=== PATIENT | male | born 1995 | race Caucasian/White ===

== ENCOUNTER 2018-07-12 20:54 | Emergency (ER) | payer SELFPAY ==
[2018-07-12 22:30] LABS: Absolute Lymphocytes (CBC) 2.9 K/uL (0.7-4.9); Absolute Monocytes 0.7 K/uL (0.1-1.3); Basophils % 0.5 % (0-1.3); Hematocrit 45.4 % (39.6-49.0); Lymphocytes % 32.8 % (15.3-44.8); MCH 30.9 pg (27.0-35.0); MCV 89.5 fL (80-100); MPV 8.8 fL (7.6-11.3); Monocytes % 7.8 % (3.3-12.3); RBC Red Blood Cell Count 5.07 M/uL (4.33-5.43)
[2018-07-12 22:45] LABS: Albumin 4.3 g/dL (3.4-5.0); Bilirubin Direct 0.2 mg/dL (0-0.2); Bilirubin Total 0.9 mg/dL (0.2-1.0); Potassium 4.5 mmol/L (3.5-5.1); Protein, Total 8.4 g/dL (6.4-8.2)
--- NOTE | 2018-07-12 23:52 | ER ---
Nurse's Notes [facility] Name: Dionte Carpenter Age: 23 yrs Sex: Male : 1995 Arrival Date: 07/12/2018 Time: 20:59 Bed 25 Private MD: Diagnosis: Vomiting;Diarrhea, unspecified Presentation: 07/12 21:10 Presenting complaint: Patient states: He has been having abdominal pain "that is aj1 everywhere and moves around like a constant stomach ache" vomiting, and diarrhea since Tuesday. Reports that he has also been having lower back pain. Denies fever. Denies urinary symptoms. Transition of care: patient was not received from another setting of care. Onset of symptoms was July 2018. Risk Assessment: Do you want to hurt yourself or someone else? Patient reports no desire to harm self or others. Initial Sepsis Screen: Does the patient meet any 2 criteria? No. Patient's initial sepsis screen is negative. Does the patient have a suspected source of infection? Yes: Acute abdominal pain. Care prior to arrival: None. 21:10 Method Of Arrival: Ambulatory aj 21:10 Acuity: IRINA 3 aj1 Triage Assessment: 21:32 General: Appears in no apparent distress. comfortable, Behavior is calm, cooperative, aj1 appropriate for age. Pain: Complains of pain in abdomen Pain currently is 5 out of 10 on a pain scale. Neuro: Level of Consciousness is awake, alert, obeys commands. Cardiovascular: Patient's skin is warm and dry. Respiratory: Airway is patent Respiratory effort is even, unlabored, Respiratory pattern is regular, symmetrical. Musculoskeletal: Range of motion: intact in all extremities. Historical: - Allergies: 21:32 SHELLFISH; aj1 - Home Meds: 21:32 None [Active]; aj1 - PMHx: 21:32 None; aj1 - PSHx: 21:32 None; aj1 - Immunization history:: Flu vaccine is not up to date. - Social history:: Smoking status: Patient uses tobacco products, denies chronic smoking, but will smoke occasionally. - Ebola Screening: : Patient denies travel to an Ebola-affected area in the 21 days before illness onset. Screenin:45 Abuse screen: Denies threats or abuse. Denies injuries from another. Nutritional mg2 screening: No deficits noted. Tuberculosis screening: No symptoms or risk factors identified. Fall Risk None identified. Assessment: 23:39 General: Appears in no apparent distress. comfortable, Behavior is calm, cooperative. mg2 Pain: Denies pain. Neuro: Level of Consciousness is awake, alert, obeys commands, Oriented to person, place, time, situation. Cardiovascular: No deficits noted. Respiratory: No deficits noted. GI: Abdomen is flat, non-distended, Reports diarrhea. : No signs and/or symptoms were reported regarding the genitourinary system. EENT: No signs and/or symptoms were reported regarding the EENT system. Derm: Skin is intact, is healthy with good turgor, Skin is pink, warm \\T\\ dry. normal. Musculoskeletal: No signs and/or symptoms reported regarding the musculoskeletal system. Vital Signs: 21:32 BP 139 / 99; Pulse 72; Resp 18; Temp 98.4(TE); Pulse Ox 99% on R/A; Weight 77.11 kg aj1 (R); Height 5 ft. 9 in. (175.26 cm) (R); Pain 5/10; 21:50 BP 144 / 104 LA Sitting (auto/reg); Pulse 70; Resp 18; Temp 98.6(O); Pulse Ox 99% on jp3 R/A; Pain 4/10; 23:38 BP 133 / 86; Pulse 69; Resp 18; Pulse Ox 100% on R/A; Pain 0/10; mg2 21:32 Body Mass Index 25.10 (77.11 kg, 175.26 cm) aj1 ED Course: 20:59 Patient arrived in ED. ds1 21:13 Triage completed. aj1 21:32 Arm band placed on Patient placed in waiting room, Patient notified of wait time. aj1 21:40 Warm blanket given. Pillow given. jp3 21:44 Adrian North, DONNA is Primary Nurse. mg2 21:47 Navjot Scott NP is PHCP. pm1 21:47 Adrien Hall MD is Attending Physician. pm1 21:57 Bed in low position. Call light in reach. Side rails up X 1. Pulse ox on. NIBP on. jp3 22:05 Initial lab(s) drawn, by me, sent to lab. Inserted saline lock: 20 gauge in left jp3 antecubital area, using aseptic technique. Blood collected. 22:15 Basic Metabolic Panel Sent. jp3 22:15 CBC with Diff Sent. jp3 22:15 Creatinine for Radiology Sent. jp3 22:16 Hepatic Function Sent. jp3 22:16 Lipase Sent. jp3 23:40 No provider procedures requiring assistance completed. mg2 07/13 00:05 IV discontinued, intact, bleeding controlled, No redness/swelling at site. Pressure mg2 dressing applied. Administered Medications: No medications were administered Outcome: 07/12 23:51 Discharge ordered by MD. pm1 07/13 00:05 Discharged to home ambulatory, with family. mg2 Condition: stable Discharge instructions given to patient, family, Instructed on discharge instructions, follow up and referral plans. medication usage, Demonstrated understanding of instructions, follow-up care, medications, Prescriptions given X 2. 00:05 Patient left the ED. mg2 Signatures: Fadumo Pardo, RN RN aj1 Evelia Hilliard ds1 Navjot Scott NP RIG MANAGER pm1 Adrian North RN RN mg2 Maico Gonzalez jp3
--- NOTE | 2018-07-12 23:52 | EDPHYS ---
Physician Documentation [facility] Name: Dionte Carpenter Age: 23 yrs Sex: Male : 1995 Arrival Date: 07/12/2018 Time: 20:59 Bed 25 Private MD: ED Physician Adrien Hall HPI: 07/12 23:00 This 23 yrs old Male presents to ER via Ambulatory with complaints of pm1 Vomiting, Diarrhea. 07/13 16:07 The patient presents to the emergency department with nausea, vomiting, diarrhea, pm1 abdominal pain, of the abdomen diffusely, described as crampy. Onset: The symptoms/episode began/occurred 4 day(s) ago. Possible causes: unknown. The symptoms are aggravated by nothing. The symptoms are alleviated by nothing. Associated signs and symptoms: Pertinent positives: low back pain, Pertinent negatives: dysuria, fever. The patient has not recently seen a physician. Historical: - Allergies: 07/12 21:32 SHELLFISH; aj1 - Home Meds: 21:32 None [Active]; aj1 - PMHx: 21:32 None; aj1 - PSHx: 21:32 None; aj1 - Immunization history:: Flu vaccine is not up to date. - Social history:: Smoking status: Patient uses tobacco products, denies chronic smoking, but will smoke occasionally. - Ebola Screening: : Patient denies travel to an Ebola-affected area in the 21 days before illness onset. ROS: 07/13 16:07 Constitutional: Negative for fever, chills, and weight loss, Eyes: Negative for injury, pm1 pain, redness, and discharge, ENT: Negative for injury, pain, and discharge, Neck: Negative for injury, pain, and swelling, Cardiovascular: Negative for chest pain, palpitations, and edema, Respiratory: Negative for shortness of breath, cough, wheezing, and pleuritic chest pain. Back: Negative for injury and pain, : Negative for injury, bleeding, discharge, and swelling, MS/Extremity: Negative for injury and deformity, Skin: Negative for injury, rash, and discoloration, Neuro: Negative for headache, weakness, numbness, tingling, and seizure. Abdomen/GI: Positive for abdominal pain, nausea, vomiting, and diarrhea, Negative for constipation. Exam: 16:07 Constitutional: This is a well developed, well nourished patient who is awake, alert, pm1 and in no acute distress. Head/Face: Normocephalic, atraumatic. Eyes: Pupils equal round and reactive to light, extra-ocular motions intact. Lids and lashes normal. Conjunctiva and sclera are non-icteric and not injected. Cornea within normal limits. Periorbital areas with no swelling, redness, or edema. ENT: Nares patent. No nasal discharge, no septal abnormalities noted. Tympanic membranes are normal and external auditory canals are clear. Oropharynx with no redness, swelling, or masses, exudates, or evidence of obstruction, uvula midline. Mucous membranes moist. Neck: Trachea midline, no thyromegaly or masses palpated, and no cervical lymphadenopathy. Supple, full range of motion without nuchal rigidity, or vertebral point tenderness. No Meningismus. Chest/axilla: Normal chest wall appearance and motion. Nontender with no deformity. No lesions are appreciated. Cardiovascular: Regular rate and rhythm with a normal S1 and S2. No gallops, murmurs, or rubs. Normal PMI, no JVD. No pulse deficits. Respiratory: Lungs have equal breath sounds bilaterally, clear to auscultation and percussion. No rales, rhonchi or wheezes noted. No increased work of breathing, no retractions or nasal flaring. 16:07 Back: No spinal tenderness. No costovertebral tenderness. Full range of motion. Skin: Warm, dry with normal turgor. Normal color with no rashes, no lesions, and no evidence of cellulitis. MS/ Extremity: Pulses equal, no cyanosis. Neurovascular intact. Full, normal range of motion. 16:07 Abdomen/GI: Inspection: abdomen appears normal, Bowel sounds: normal, in all quadrants, Palpation: abdomen is soft and non-tender, in all quadrants, mass, is not appreciated, rebound tenderness, is not appreciated. 16:07 Neuro: Orientation: is normal, Motor: is normal, moves all fours. Vital Signs: 12 21:32 BP 139 / 99; Pulse 72; Resp 18; Temp 98.4(TE); Pulse Ox 99% on R/A; Weight 77.11 kg aj1 (R); Height 5 ft. 9 in. (175.26 cm) (R); Pain 5/10; 21:50 BP 144 / 104 LA Sitting (auto/reg); Pulse 70; Resp 18; Temp 98.6(O); Pulse Ox 99% on jp3 R/A; Pain 4/10; 23:38 BP 133 / 86; Pulse 69; Resp 18; Pulse Ox 100% on R/A; Pain 0/10; mg2 21:32 Body Mass Index 25.10 (77.11 kg, 175.26 cm) aj1 MDM: 21:48 Patient medically screened. pm1 23:50 Data reviewed: vital signs. Data interpreted: Pulse oximetry: on room air is 100 %. pm1 Interpretation: normal. Counseling: I had a detailed discussion with the patient and/or guardian regarding: the historical points, exam findings, and any diagnostic results supporting the discharge/admit diagnosis, lab results, the need for outpatient follow up, to return to the emergency department if symptoms worsen or persist or if there are any questions or concerns that arise at home. 07/12 21:48 Order name: Basic Metabolic Panel; Complete Time: 23:50 pm1 07/12 21:48 Order name: CBC with Diff; Complete Time: 23:50 pm1 07/12 21:48 Order name: Creatinine for Radiology; Complete Time: 23:50 pm1 07/12 21:48 Order name: Hepatic Function; Complete Time: 23:50 pm1 07/12 21:48 Order name: Lipase; Complete Time: 23:50 pm1 07/12 21:48 Order name: IV Saline Lock; Complete Time: 22:16 pm1 07/12 21:48 Order name: Labs collected and sent; Complete Time: 22:16 pm1 07/12 21:48 Order name: Urine Dipstick-Ancillary (obtain specimen); Complete Time: 21:58 pm1 Administered Medications: No medications were administered Disposition: 07/13 06:07 Co-signature as Attending Physician, Adrien Hall MD I agree with the assessment and tw4 plan of care. Disposition: 07/12/18 23:51 Discharged to Home. Impression: Vomiting, Diarrhea, unspecified. - Condition is Stable. - Discharge Instructions: Food Choices to Help Relieve Diarrhea, Adult, Diarrhea, Adult, Nausea and Vomiting, Adult, Viral Gastroenteritis, Adult. - Prescriptions for Zofran 4 mg Oral Tablet - take 1 tablet by ORAL route every 12 hours As needed; 20 tablet. Bentyl 20 mg Oral Tablet - take 1 tablet by ORAL route every 6 hours As needed; 20 tablet. - Medication Reconciliation Form, Thank You Letter, Antibiotic Education, Prescription Opioid Use, Work release form form. - Follow up: Emergency Department; When: As needed; Reason: Worsening of condition. Follow up: Private Physician; When: 2 - 3 days; Reason: Recheck today's complaints, Continuance of care, Re-evaluation by your physician. - Problem is new. - Symptoms have improved. Signatures: Dispatcher [employer] EDMS Fadumo Pardo, RN RN aj1 Navjot Scott, TOOL MAKER APPRENTICE TOOL MAKER APPRENTICE pm1 Adrien Hall MD MD tw4 Adrian North RN RN mg2 Corrections: (The following items were deleted from the chart) 00:05 07/12 23:51 07/12/2018 23:51 Discharged to Home. Impression: Vomiting; Diarrhea, mg2 unspecified. Condition is Stable. Forms are Medication Reconciliation Form, Thank You Letter, Antibiotic Education, Prescription Opioid Use. Follow up: Emergency Department; When: As needed; Reason: Worsening of condition. Follow up: Private Physician; When: 2 - 3 days; Reason: Recheck today's complaints, Continuance of care, Re-evaluation by your physician. Problem is new. Symptoms have improved. pm1
== END 2018-07-13 00:05 | disposition home or self-care (01) ==
LOC: ER 20:54
DX: R19.7 Diarrhea, unspecified (principal); Z72.0 Tobacco use; Z91.013 Allergy to seafood
CPT/HCPCS: 36415; 80048; 80076; 83690; 85025; 99284

== ENCOUNTER 2023-05-05 12:34 | Emergency (ER) | payer SELFPAY ==
--- OUTSIDE RECORDS SUMMARY | 2023-05-05 12:36 | XMS REPORT | Continuity of Care Document ---
:1995 Author Organization [facility] t Address [address] [place] [address] [address] [place] [address] Care Team Providers Name Role Phone Unavailable Unavailable Unavailable Problems This patient has no known problems. Allergies, Adverse Reactions, Alerts This patient has no known allergies or adverse reactions. Medications This patient has no known medications. Procedures This patient has no known procedures. Results This patient has no known results.
[2023-05-05 13:12] LABS: Absolute Lymphocytes (CBC) 1.9 K/uL (0.7-4.9); Hematocrit 49.8 % (39.6-49.0); Lymphocytes % 13.8 % (15.3-44.8); MCV 91.4 fL (80-100); MPV 8.1 fL (7.6-11.3); Platelets 281 thou/uL (152-406); RBC Red Blood Cell Count 5.45 M/uL (4.33-5.43)
[2023-05-05 13:18] LABS: Protime INR 1.08
[2023-05-05 13:25] LABS: Barbiturates NEGATIVE (NEGATIVE); Benzodiazepines NEGATIVE (NEGATIVE); Cocaine NEGATIVE (NEGATIVE); METHAMPHETAM NEGATIVE (NEGATIVE); Opiates NEGATIVE (NEGATIVE); Phencyclidine NEGATIVE (NEGATIVE); THC Cannibis POSITIVE (NEGATIVE)
[2023-05-05 13:45] LABS: ALT/SGPT 25 U/L (16-61); AST/SGOT 18 U/L (15-37); Albumin 4.7 g/dL (3.4-5.0); Alkaline Phosphatase 89 U/L (45-117); BUN Blood Urea Nitrogen 11 mg/dL (7-18); Bicarbonate 25 mEq/L (21-32); Bilirubin Direct 0.3 mg/dL (0-0.2); Bilirubin Indirect, Calculated 1.7 mg/dL (0.2-0.8); Glomerular Filtration Rate 108 ml/min (=/>90); Glucose Level 97 mg/dL (74-106); Potassium 3.9 mEq/L (3.5-5.1); Protein, Total 8.5 g/dL (6.4-8.2); Sodium Level 136 mEq/L (136-145)
[2023-05-05 13:51] LABS: Methadone ND (NEGATIVE)
--- NOTE | 2023-05-05 16:20 | ER ---
Nurse's Notes [facility] Name: Dionte Carpenter Age: 27 yrs Sex: Male : 1995 Arrival Date: 05/05/2023 Time: 12:34 Bed 18 Private MD: Diagnosis: Suicidal ideations Presentation: 05/05 12:39 Chief complaint: Patient states: SI thoughts since yesterday. Previous thoughts and ld1 attempt of SI - cutting and pills. Pt states "I want to get help before the thoughts get worse.". Coronavirus screen: At this time, the client does not indicate any symptoms associated with coronavirus-19. Ebola Screen: No symptoms or risks identified at this time. Initial Sepsis Screen: Does the patient meet any 2 criteria? No. Patient's initial sepsis screen is negative. Does the patient have a suspected source of infection? No. Patient's initial sepsis screen is negative. Risk Assessment: Do you want to hurt yourself or someone else? Patient reports no desire to harm self or others. Onset of symptoms was May 05, 2023. 12:39 Method Of Arrival: Ambulatory ld1 12:39 Acuity: IRINA 2 ld1 Triage Assessment: 12:41 General: Appears in no apparent distress. comfortable, Behavior is calm, cooperative, ld1 appropriate for age. Pain: Denies pain. EENT: No signs and/or symptoms were reported regarding the EENT system. Neuro: Level of Consciousness is awake, alert, obeys commands, Oriented to person, place, time, situation. Cardiovascular: Capillary refill < 3 seconds Patient's skin is warm and dry. Respiratory: Airway is patent Respiratory effort is even, unlabored. GI: Abdomen is flat, non-distended. : No signs and/or symptoms were reported regarding the genitourinary system. Derm: No signs and/or symptoms reported regarding the dermatologic system. Musculoskeletal: No signs and/or symptoms reported regarding the musculoskeletal system. Historical: - Allergies: 12:41 SHELLFISH; ld1 - PMHx: 12:41 None; ld1 - PSHx: 12:41 None; ld1 - Immunization history:: Adult Immunizations up to date. - Social history:: Smoking status: Reported history of juuling and/or vaping. Patient/guardian denies using alcohol. Screenin:35 [facility] Fall Risk Assessment (Adult) History of falling in the last 3 months, ap3 including since admission No falls in past 3 months (0 pts). Abuse screen: Denies threats or abuse. Nutritional screening: No deficits noted. Tuberculosis screening: No symptoms or risk factors identified. Assessment: 13:10 General: Appears comfortable, Behavior is cooperative. Pain: Denies pain. Neuro: Level ap3 of Consciousness is awake, alert, obeys commands, Oriented to person, place, time, situation. Cardiovascular: Patient's skin is warm and dry. Respiratory: Airway is patent Respiratory effort is even, unlabored, Respiratory pattern is regular, symmetrical. 14:07 Reassessment: No changes from previously documented assessment. Patient and/or family ap3 updated on plan of care and expected duration. Pain level reassessed. Patient is alert, oriented x 3, equal unlabored respirations, skin warm/dry/pink. 15:45 Reassessment: No changes from previously documented assessment. Patient and/or family ap3 updated on plan of care and expected duration. Pain level reassessed. Patient is alert, oriented x 3, equal unlabored respirations, skin warm/dry/pink. medical center clinic rep at bedside. Psych: 13:34 [facility] Suicide Severity Screening: In the past month, have you wished you were ap3 or wished you could go to sleep and not wake up? Patient responds "yes." "In the past month, have you actually had any thoughts of killing yourself?" Patient responds "yes." "In your lifetime, have you ever done anything, started to do anything, or prepared to do anything to end your life?" Patient responds "no.". Subjective: Patient's mood is sad, Delusions are denied, Hallucinations are denied Having thoughts of suicide. Denies suicidal plan. Objective: Patient is cooperative, Speech is normal, Affect is appropriate. Interventions: Removed personal items and placed in bag. Patient placed in hospital gown. Searched person for dangerous items. Urine collected and sent for urine drug test. Belonging list filled out. Safety Checks: Personal items have been removed. Door is open. Visitors are present. Patient uses marijuana. 16:31 Commitment:. ap3 Vital Signs: 12:39 BP 128 / 92; Pulse 84; Resp 18; Temp 98.1(O); Pulse Ox 100% on R/A; Weight 74.84 kg; ld1 Height 5 ft. 11 in. ; Pain 0/10; 12:39 Body Mass Index 23.01 (74.84 kg, 180.34 cm) ld1 12:39 Pain Scale: Adult ld1 ED Course: 12:37 Patient arrived in ED. 5 12:37 [facility] Asif FNP [facility] 7 12:37 Eric Hodgson DO is Attending Physician. 7 12:41 Triage completed. ld1 12:41 Arm band placed on right wrist. ld1 12:52 Lupe Zimmerman, RN is Primary Nurse. ap3 13:09 Acetaminophen Sent. bc6 13:09 Basic Metabolic Panel Sent. bc6 13:09 CBC with Diff Sent. bc6 13:09 ETOH Level Sent. bc6 13:09 Hepatic Function Sent. bc6 13:09 PT-INR Sent. bc6 13:09 Ptt, Activated Sent. bc6 13:09 Salicylate Sent. bc6 13:09 Urine Drug Screen Sent. bc6 13:09 Inserted saline lock: 20 gauge in right forearm, using aseptic technique. Blood bc6 collected. 13:35 Patient has correct armband on for positive identification. Bed in low position. Adult ap3 w/ patient. 16:31 Provided Education on: following up with [facility]. ap3 16:31 No provider procedures requiring assistance completed. IV discontinued, intact, ap3 bleeding controlled, No redness/swelling at site. Pressure dressing applied. Administered Medications: No medications were administered Medication: 13:35 VIS not applicable for this client. ap3 Outcome: 16:19 Discharge ordered by . [facility] 16:31 Discharged to home ambulatory, with family, [facility] 16:31 Condition: good 16:31 Discharge instructions given to patient, family, Instructed on discharge instructions, follow up and referral plans. Demonstrated understanding of instructions, follow-up care, 16:32 Patient left the ED. ap3 Signatures: Lupe Zimmerman RN RN ap3 Nazia Hodsgon RN RN ld1 Lucia Asif FNP FNP 7 Aubree Kinsey [facility] Rula Aggarwal mg5
--- NOTE | 2023-05-05 16:20 | EDPHYS ---
Physician Documentation [facility] Name: Dionte Carpenter Age: 27 yrs Sex: Male : 1995 Arrival Date: 05/05/2023 Time: 12:34 Bed 18 Private MD: ED Physician Eric Hodgson HPI: 05/05 12:41 This 27 yrs old Male presents to ER via Ambulatory with complaints of Mental jh7 Health Crisis. 12:41 Onset: The symptoms/episode began/occurred yesterday. Associated signs and symptoms: jh7 The patient has no apparent associated signs or symptoms. 27-year-old male presents with suicidal ideation starting yesterday. The patient states that he had a bad day yesterday and started thinking of suicide. He states I do not want to but I feel like it is the only way out. Reports that he does not have a plan, but wanted to be seen before his thoughts get worse. No prior diagnosis of depression or anxiety.. Historical: - Allergies: 12:41 SHELLFISH; ld1 - PMHx: 12:41 None; ld1 - PSHx: 12:41 None; ld1 - Immunization history:: Adult Immunizations up to date. - Social history:: Smoking status: Reported history of juuling and/or vaping. Patient/guardian denies using alcohol. ROS: 12:41 Constitutional: Negative for fever, chills, and weight loss, Neck: Negative for injury, jh7 pain, and swelling, Cardiovascular: Negative for chest pain, palpitations, and edema, Respiratory: Negative for shortness of breath, cough, wheezing, and pleuritic chest pain, Abdomen/GI: Negative for abdominal pain, nausea, vomiting, diarrhea, and constipation, Skin: Negative for injury, rash, and discoloration, Neuro: Negative for headache, weakness, numbness, tingling, and seizure, 12:41 Psych: Positive for depression, suicidal ideation, Negative for auditory hallucinations, visual hallucinations, homicidal ideation, 12:41 All other systems are negative, Exam: 12:41 Constitutional: This is a well developed, well nourished patient who is awake, alert, jh7 and in no acute distress. Cardiovascular: Regular rate and rhythm with a normal S1 and S2. No gallops, murmurs, or rubs. Normal PMI, no JVD. No pulse deficits. Respiratory: Lungs have equal breath sounds bilaterally, clear to auscultation and percussion. No rales, rhonchi or wheezes noted. No increased work of breathing, no retractions or nasal flaring. Abdomen/GI: Soft, non-tender, with normal bowel sounds. No distension or tympany. No guarding or rebound. No evidence of tenderness throughout. Skin: Warm, dry with normal turgor. Normal color with no rashes, no lesions, and no evidence of cellulitis. MS/ Extremity: Pulses equal, no cyanosis. Neurovascular intact. Full, normal range of motion. Neuro: Awake and alert, GCS 15, oriented to person, place, time, and situation. Motor strength 5/5 in all extremities. Sensory grossly intact. Normal gait. 12:41 Psych: Behavior/mood is suicidal, depressed, Affect is calm, Oriented to person, place, time, Patient having thoughts of suicide. Denies suicidal plan. Judgement / Insight is normal. Memory is normal. Delusions/hallucinations are not present. Vital Signs: 12:39 BP 128 / 92; Pulse 84; Resp 18; Temp 98.1(O); Pulse Ox 100% on R/A; Weight 74.84 kg; ld1 Height 5 ft. 11 in. ; Pain 0/10; 12:39 Body Mass Index 23.01 (74.84 kg, 180.34 cm) ld1 12:39 Pain Scale: Adult ld1 MDM: 12:38 Patient medically screened. [facility] 15:10 ED course: Notified that the psych screener was on their way from [facility].. [facility] 16:23 Differential diagnosis: SI, depression, anxiety. Data reviewed: vital signs, nurses [facility] notes, lab test result(s), EKG. Management of patient was discussed with the following: Behavioral Health Provider: Yessica psych screener. Management of patient was discussed with the following: She advised outpatient follow-up, stated that they would call the patient tonight to check on him, and made recommendations for outpatient therapy. Spoke to the patient regarding this and he reports that he feels much better.. Counseling: I had a detailed discussion with the patient and/or guardian regarding the historical points, exam findings, and any diagnostic results supporting the discharge/admit diagnosis, the need for outpatient follow up, psych. 10/05 12:44 Order name: Acetaminophen; Complete Time: 13:56 [facility] 05/05 12:44 Order name: Basic Metabolic Panel; Complete Time: 13:56 [facility] 05/05 12:44 Order name: CBC with Diff; Complete Time: 13:26 [facility] 05/05 12:44 Order name: ETOH Level; Complete Time: 13:39 [facility] 05/05 12:44 Order name: Hepatic Function; Complete Time: 13:56 [facility] 05/05 12:44 Order name: PT-INR; Complete Time: 13: [facility] 05/05 12:44 Order name: Ptt, Activated; Complete Time: 13: [facility] 05/05 12:44 Order name: Salicylate; Complete Time: 13:56 [facility] 05/05 12:44 Order name: Urine Drug Screen; Complete Time: 13:56 [facility] 05/05 12:44 Order name: EKG; Complete Time: 12:45 [facility] 05/05 12:44 Order name: EKG - Nurse/Tech; Complete Time: 13:20 [facility] 05/05 12:44 Order name: IV Saline Lock; Complete Time: 13:08 [facility] 05/05 12:44 Order name: Labs collected and sent; Complete Time: 13: [facility] 05/05 12:44 Order name: Suicide Screening (Cathay); Complete Time: 13:09 [facility] EC:20 Rate is 54 beats/min. Rhythm is regular. QRS [place] is Normal. AL interval is normal at [facility] 146 msec. QRS interval is normal at 96 msec. QT interval is normal at 410 msec. No Q waves. T waves are Normal. No ST changes noted. Clinical impression: Sinus bradycardia. Administered Medications: No medications were administered Disposition: 13:02 I was immediately available on-site in the Emergency Department for consultation in the nj3 care of the patient. Disposition Summary: 05/05/23 16:19 Discharge Ordered Notes: Location: Home [facility] Problem: new [facility] Symptoms: have improved [facility] Condition: Stable [facility] Diagnosis - Suicidal ideations [facility] Followup: [facility] - With: Private Physician - When: Tomorrow - Reason: Recheck today's complaints Discharge Instructions: - Discharge Summary Sheet [facility] - Suicidal Feelings: How to Help Yourself [facility] Forms: - Family Work Release em1 - Medication Reconciliation Form jh7 - Thank You Letter jh7 - Patient Portal Instructions 7 - Leadership Thank You Letter 7 Signatures: Dispatcher [employer] EDEric Pruitt, DO ms3 Nazia Hodgson, DONNA RN ld1 Lucia Asif, BLIND LACER BLIND LACER 7
[2023-05-05 18:36] VITALS: BP 128/92; TEMP 98.1; O2SAT 100
--- NOTE | 2023-05-06 12:23 | EKG ---
Test Date: 2023-05-05 Test Time: 13:18:14 Comprehensive Ophthalmologist: ZACHARIAH MEASUREMENT RESULTS: Intervals: Rate: 54 RI: 146 QRSD: 96 QT: 410 QTc: 388 [place]: P: 65 RI: 146 QRS: 92 T: 66 INTERPRETIVE STATEMENTS: Sinus bradycardia Rightward axis Borderline ECG No previous ECG available for comparison Electronically Signed On 05-06-23 12:20:46 CDT by Tristan Solano
== END 2023-05-05 16:32 | disposition home or self-care (01) ==
LOC: ER 12:34
DX: R45.851 Suicidal ideations (principal); F32.A Depression, unspecified; Z91.013 Allergy to seafood
CPT/HCPCS: 36415; 80048; 80076; 80143; 80179; 80307; 82077; 85025; 85610; 85730; 93005; 99284